=== PATIENT | female | born 1955 | race Caucasian/White ===

== ENCOUNTER → 2017-05-07 | Outpatient (CLI) | payer OTHER | END | disposition home or self-care (01) | LOC: CFH 10:27 | PROVIDERS: ATTEND Internal Medicine Cardiovascular Disease | DX: R07.9 Chest pain, unspecified (principal); I51.7 Cardiomegaly; I10 Essential (primary) hypertension; E78.5 Hyperlipidemia, unspecified | CPT/HCPCS: 93306 ==

== ENCOUNTER → 2017-05-26 | Outpatient (CLI) | payer OTHER | END | disposition home or self-care (01) | LOC: RAD 07:27 | PROVIDERS: ATTEND Internal Medicine Cardiovascular Disease | DX: R07.9 Chest pain, unspecified (principal); I10 Essential (primary) hypertension | CPT/HCPCS: 78452; 93017; A9502 ==

== ENCOUNTER 2019-08-03 15:06 | Inpatient (IN) | payer OTHER ==
[~2019-08-03] VITALS: Ht 154.9 cm; Wt 102.6 kg
--- NOTE | 2019-08-03 15:21 | NUR ---
RN ASKED PT IF SHE WAS ABLE TO PROVIDE RN WITH A URINE SAMPLE. PT AMBULATED TO RESTROOM WITH A STEADY GAIT.
--- NOTE | 2019-08-03 15:25 | NUR ---
PT PRESENTED TO ED D/T ABNORMAL LAB RESULTS FROM PCP. PT STATES HAVE BEEN ON A LIQUID DIET SINCE WEDNESDAY FOR PREVIOUS ABD PAIN. PT DENIES ANY PAIN AT THIS TIME. PT ONLY COMPLAINT OF "ORANGE" LOOKING URINE.
--- NOTE | 2019-08-03 15:29 | NUR ---
SUBSTATION TECHNICIAN AT BEDSIDE EVALUATING PT.
[2019-08-03] MEDS ORDERED: OMEP20TA62 PO (15:42)
[2019-08-03] MEDS ORDERED: BP MED (15:43)
--- NOTE | 2019-08-03 15:44 | NUR ---
LABS AT BEDSIDE. URINE SENT TO LAB.
[2019-08-03 15:59] LABS: BASOPHILS # (AUTO) 0.07 x10^3/uL (0-0.1); BASOPHILS % (AUTO) 1 % (0-1); EOSINOPHILS # (AUTO) 0.25 x10^3/uL (0-0.4); EOSINOPHILS % (AUTO) 3 % (1-7); LYMPHOCYTES # (AUTO) 2.22 x10^3/uL (1-3.4); LYMPHOCYTES % (AUTO) 29 % (22-44); MD NO; MEAN CORPUSCULAR HGB CONC 33.2 g/dL (32.4-35.8); MEAN CORPUSCULAR VOLUME 93.5 fL (80-100); MEAN PLATELET VOLUME 9.2 fL (7.4-10.4); MONOCYTES # (AUTO) 0.96 x10^3/uL (0.2-0.8); MONOCYTES % (AUTO) 13 % (2-9); NEUTROPHILS # (AUTO) 4.14 x10^3/uL (1.8-6.8); NEUTROPHILS % (AUTO) 54 % (42-75); PLATELET COUNT 334 x10^3/uL (130-400); RED BLOOD COUNT 4.81 x10^6/uL (3.82-5.3); RED CELL DISTRIBUTION WIDTH 13.7 % (9.6-15.2)
[2019-08-03 16:03] LABS: ALANINE AMINOTRANSFERASE 159 U/L (12-78); ALBUMIN 3.3 g/dL (3.4-5.0); ANION GAP 7 mmol/L (5-15); CALCIUM 9.4 mg/dL (8.5-10.1); CHLORIDE 107 mmol/L (98-107); CREATININE 0.72 mg/dL (0.55-1.02)
[2019-08-03 16:05] LABS: ALKALINE PHOSPHATASE 162 U/L (45-117); BILIRUBIN,TOTAL 1.3 mg/dL (0.2-1.0); TOTAL PROTEIN 8.1 g/dL (6.4-8.2)
--- NOTE | 2019-08-03 16:18 | NUR ---
PT ON PHONE LYING ON GURNEY. NO NEEDS AT THIS TIME. AWAITING US. VSS. RN TO CONTINUE TO MONITOR.
[2019-08-03 16:36] LABS: CULTURE INDICATED? YES; MICROSCOPIC INDICATED
--- NOTE | 2019-08-03 16:38 | NUR ---
PIV ACCESS OBTAINED. PT UPDATED ON POC.
--- NOTE | 2019-08-03 16:52 | NUR ---
RN TO GIVE REPORT TO NOLAN BUSH TO ASSUME PRIMARY CARE OF PT.
--- NOTE | 2019-08-03 16:57 | NUR ---
BEDSIDE REPORT GIVEN FROM NOLAN MARRUFO
--- NOTE | 2019-08-03 17:17 | NUR ---
US DONE. PT ON TALKING ON CELL PHONE. NO ACUTE DISTRESS NOTED. CALL LIGHT IN PLACE. WILL CONTINUE TO MONITOR.
[2019-08-03] MEDS ORDERED: LACTATED RINGERS 1,000 ML IVBOLUS ONE (17:30)
[2019-08-03] MEDS ORDERED: POLYETHYLENE GLYCOL 17 GM PACKET PO PRN (19:00)
[2019-08-03] MEDS ORDERED: ONDANSETRON ODT 4 MG PO PRN (19:00)
[2019-08-03] MEDS ORDERED: BISACODYL 10 MG SUPP PR PRN (19:00)
[2019-08-03] MEDS ORDERED: hydrALAzine 20 MG/ML, 1ML IVPush PRN (19:00)
[2019-08-03] MEDS ORDERED: ONDANSETRON 2MG/ML, 2ML IVPush PRN (19:00)
[2019-08-03] MEDS ORDERED: ACETAMINOPHEN 325 MG TABLET PO PRN (19:00)
[2019-08-03 20:33] VITALS: BP 137/83
[2019-08-03] MEDS: CEFTRIAXONE PMX 1GM/50ML 50 ML IV SCH (21:57)
[2019-08-03] MEDS: LACTATED RINGERS 1,000 ML IV SCH (21:57)
[2019-08-04 01:10] VITALS: BP 130/68
[2019-08-04 05:42] LABS: ANION GAP 5 mmol/L (5-15); CALCIUM 9.1 mg/dL (8.5-10.1); CHLORIDE 112 mmol/L (98-107)
[2019-08-04 05:46] LABS: ALANINE AMINOTRANSFERASE 145 U/L (12-78); ALKALINE PHOSPHATASE 145 U/L (45-117); BILIRUBIN,TOTAL 1.2 mg/dL (0.2-1.0); CHOL/HDL RATIO 5.1; CHOLESTEROL, TOTAL 163 mg/dL (140-239); CREATININE 0.58 mg/dL (0.55-1.02); HDL CHOL % 20 % (28-40); HDL CHOLESTEROL (DIRECT) 32 mg/dL (40-60); LDL CHOLESTEROL,CALCULATED 111 mg/dL (54-169); LDL/HDL RATIO 3.5 (0.5-3.0); TOTAL PROTEIN 7.2 g/dL (6.4-8.2); TRIGLYCERIDES 100 mg/dL (50-200); VLDL CHOLESTEROL 20 mg/dL (0-25)
[2019-08-04 05:49] LABS: BASOPHILS # (AUTO) 0.07 x10^3/uL (0-0.1); BASOPHILS % (AUTO) 1 % (0-1); EOSINOPHILS # (AUTO) 0.23 x10^3/uL (0-0.4); EOSINOPHILS % (AUTO) 4 % (1-7); LYMPHOCYTES # (AUTO) 1.79 x10^3/uL (1-3.4); LYMPHOCYTES % (AUTO) 28 % (22-44); MD NO; MEAN CORPUSCULAR HEMOGLOBIN 31.1 pg (27.0-34.8); MEAN CORPUSCULAR VOLUME 94.1 fL (80-100); MONOCYTES # (AUTO) 0.87 x10^3/uL (0.2-0.8); MONOCYTES % (AUTO) 14 % (2-9); NEUTROPHILS # (AUTO) 3.53 x10^3/uL (1.8-6.8); NEUTROPHILS % (AUTO) 54 % (42-75); PLATELET COUNT 293 x10^3/uL (130-400); RED CELL DISTRIBUTION WIDTH 13.9 % (9.6-15.2)
[2019-08-04 06:49] VITALS: BP 138/82
[2019-08-04] MEDS: LACTATED RINGERS 1,000 ML IV SCH ×2 (08:00→19:18)
[2019-08-04] MEDS: SENNA/DOCUSATE TABLET PO SCH (08:47)
[2019-08-04 12:38] VITALS: BP 138/88
[2019-08-04 19:37] VITALS: BP 138/68
[2019-08-04] MEDS: CEFTRIAXONE PMX 1GM/50ML 50 ML IV SCH (21:58)
[2019-08-05 00:43] VITALS: BP 131/74
[2019-08-05] MEDS: LACTATED RINGERS 1,000 ML IV SCH ×3 (03:22→18:11)
[2019-08-05 05:07] LABS: BASOPHILS # (AUTO) 0.07 x10^3/uL (0-0.1); BASOPHILS % (AUTO) 1 % (0-1); EOSINOPHILS # (AUTO) 0.24 x10^3/uL (0-0.4); EOSINOPHILS % (AUTO) 3 % (1-7); LYMPHOCYTES # (AUTO) 2.21 x10^3/uL (1-3.4); LYMPHOCYTES % (AUTO) 30 % (22-44); MD NO; MEAN CORPUSCULAR HEMOGLOBIN 31.4 pg (27.0-34.8); MEAN CORPUSCULAR HGB CONC 33.4 g/dL (32.4-35.8); MEAN PLATELET VOLUME 9.1 fL (7.4-10.4); MONOCYTES # (AUTO) 0.86 x10^3/uL (0.2-0.8); MONOCYTES % (AUTO) 12 % (2-9); NEUTROPHILS # (AUTO) 3.96 x10^3/uL (1.8-6.8); NEUTROPHILS % (AUTO) 54 % (42-75); PLATELET COUNT 301 x10^3/uL (130-400); RED BLOOD COUNT 4.36 x10^6/uL (3.82-5.3); RED CELL DISTRIBUTION WIDTH 13.5 % (9.6-15.2)
[2019-08-05 05:16] LABS: ALANINE AMINOTRANSFERASE 135 U/L (12-78); ALBUMIN 2.8 g/dL (3.4-5.0); ANION GAP 8 mmol/L (5-15); CALCIUM 8.8 mg/dL (8.5-10.1); CHLORIDE 110 mmol/L (98-107); CREATININE 0.52 mg/dL (0.55-1.02)
[2019-08-05 05:18] LABS: ALKALINE PHOSPHATASE 140 U/L (45-117)
[2019-08-05 06:46] VITALS: BP 150/100
[2019-08-05] MEDS: SENNA/DOCUSATE TABLET PO SCH (07:31)
[2019-08-05 12:11] VITALS: BP 167/78
[2019-08-05 20:00] VITALS: BP 169/84
[2019-08-05] MEDS: CEFTRIAXONE PMX 1GM/50ML 50 ML IV SCH (22:08)
[2019-08-05] MEDS ORDERED: VALS80TA30 PO (22:10)
[2019-08-06 01:38] VITALS: BP 148/75
[2019-08-06] MEDS: LACTATED RINGERS 1,000 ML IV SCH ×3 (03:41→17:50)
[2019-08-06 06:23] LABS: ALBUMIN 2.8 g/dL (3.4-5.0); ANION GAP 8 mmol/L (5-15); CALCIUM 9.1 mg/dL (8.5-10.1); CHLORIDE 110 mmol/L (98-107)
[2019-08-06 06:27] LABS: ALANINE AMINOTRANSFERASE 147 U/L (12-78); ALKALINE PHOSPHATASE 139 U/L (45-117); BILIRUBIN,TOTAL 1.1 mg/dL (0.2-1.0); CREATININE 0.46 mg/dL (0.55-1.02); TOTAL PROTEIN 7.1 g/dL (6.4-8.2)
[2019-08-06 06:56] VITALS: BP 142/70
[2019-08-06] MEDS: SENNA/DOCUSATE TABLET PO SCH (08:21)
[2019-08-06] MEDS: HEPARIN 5,000 UNITS/ML, 1ML SQ SCH ×2 (13:30→21:38)
[2019-08-06 13:42] VITALS: BP 174/84
[2019-08-06 15:37] VITALS: BP 161/86
[2019-08-06] MEDS ORDERED: VALSARTAN 80 MG TABLET ONE (15:49)
[2019-08-06] MEDS: VALSARTAN 80 MG TABLET PO SCH (15:52)
[2019-08-06 18:30] VITALS: BP 177/78
[2019-08-07 02:22] VITALS: BP 141/68
[2019-08-07] MEDS: LACTATED RINGERS 1,000 ML IV SCH ×4 (02:26→13:00)
[2019-08-07] MEDS: HEPARIN 5,000 UNITS/ML, 1ML SQ SCH ×2 (05:30→12:59)
[2019-08-07] MEDS ORDERED: BUPIVACAINE/PF-EPI 0.5% 1:200K ONE (07:10)
[2019-08-07] MEDS: VALSARTAN 80 MG TABLET PO SCH (07:21)
[2019-08-07] MEDS: SENNA/DOCUSATE TABLET PO SCH (07:21)
[2019-08-07 08:00] VITALS: BP 166/82
[2019-08-07] MEDS ORDERED: FENTANYL PF 250 MCG/5ML ONE (08:30)
[2019-08-07] MEDS ORDERED: MIDAZOLAM 1 MG/ML, 2ML ONE (08:30)
[2019-08-07] MEDS ORDERED: CHLORHEXIDINE 15 ML UDC ONE (09:23)
[2019-08-07] MEDS ORDERED: CHLORHEXIDINE 15 ML UDC MM ONE (09:30)
[2019-08-07] MEDS ORDERED: MEPERIDINE/PF 25MG/ML,1ML IVPush PRN (09:30)
[2019-08-07] MEDS ORDERED: HYDROmorphone 2 MG/ML, 1ML IVPush PRN (09:30)
[2019-08-07] MEDS ORDERED: ACETAMINOPHEN 325 MG TABLET PO PRN (09:30)
[2019-08-07] MEDS ORDERED: ONDANSETRON 2MG/ML, 2ML IV PRN ×2 (09:30→15:00)
[2019-08-07] MEDS ORDERED: hydrALAzine 20 MG/ML, 1ML IV PRN (09:30)
[2019-08-07] MEDS ORDERED: KETOROLAC 30 MG/1 ML IV PRN (09:30)
[2019-08-07] MEDS ORDERED: LABETALOL 5MG/ML, 20ML IV PRN (09:30)
[2019-08-07] MEDS ORDERED: LORazepam 2 MG/ML, 1ML IVPush PRN (09:30)
[2019-08-07] MEDS ORDERED: OXYcodone 5 MG/5 ML ORAL.SOL UDC PO PRN (09:30)
[2019-08-07] MEDS ORDERED: ONDANSETRON 2MG/ML, 2ML ONE (10:24)
[2019-08-07] MEDS ORDERED: ROCURONIUM 10MG/ML,5ML ONE (10:24)
[2019-08-07] MEDS ORDERED: DEXAMETHASONE 4 MG/ML, 1ML ONE (10:24)
[2019-08-07] MEDS ORDERED: SUGAMMADEX 200 MG/2 ML IVPush ONE (10:24)
[2019-08-07] MEDS ORDERED: CEFAZOLIN 1,000 MG ONE (10:24)
[2019-08-07] MEDS ORDERED: hydrALAzine 20 MG/ML, 1ML ONE ×2 (10:24→12:15)
[2019-08-07] MEDS ORDERED: PROPOFOL 10 MG/ML, 20ML ONE (10:24)
[2019-08-07] MEDS ORDERED: OMNIPAQUE 350 MG/ML, 50 ML BOTTLE IV ONE (10:39)
[2019-08-07] MEDS ORDERED: OXYcodone 5 MG/5 ML ORAL.SOL UDC ONE (11:36)
[2019-08-07] MEDS ORDERED: FENTANYL PF 100 MCG/2ML ONE (11:36)
[2019-08-07] MEDS ORDERED: ACETAMINOPHEN 650 MG/20.3 ML UDC ONE (11:36)
[2019-08-07] MEDS: FENTANYL PF 100 MCG/2ML IV PRN ×3 (11:40→11:50)
[2019-08-07] MEDS ORDERED: LABETALOL 5MG/ML, 20ML ONE (12:14)
[2019-08-07] MEDS ORDERED: HYDROmorphone 1 MG/ML, 1ML INJ ONE (12:14)
[2019-08-07 14:25] VITALS: BP 156/73
[2019-08-07 14:48] LABS: MEAN CORPUSCULAR VOLUME 93.8 fL (80-100); MEAN PLATELET VOLUME 9.2 fL (7.4-10.4); PLATELET COUNT 343 x10^3/uL (130-400); RED BLOOD COUNT 4.97 x10^6/uL (3.82-5.3); RED CELL DISTRIBUTION WIDTH 13.8 % (9.6-15.2)
[2019-08-07 14:49] LABS: MD YES
[2019-08-07] MEDS: POTASSIUM CHLORIDE 20 MEQ in LACTATED RINGERS 1,000 ML IV SCH (15:42)
[2019-08-07] MEDS: CEFOTETAN PMX 1GM/50ML 50 ML IVPB SCH (15:42)
[2019-08-07 16:48] LABS: BAND#(MANUAL) 0.33 x10^3/uL; BANDS%(MANUAL) 3 % (0-7); BASOS#(MANUAL) 0.11 x10^3/uL (0-0.1); BASOS% (MANUAL) 1 % (0-1); LYMPH#(MANUAL) 0.88 x10^3/uL (1-3.4); LYMPHS% (MANUAL) 8 % (22-44); MONOS#(MANUAL) 0.22 x10^3/uL (0.3-2.7); MONOS% (MANUAL) 2 % (2-9); SEG#(MANUAL) 9.46 x10^3/uL (1.8-6.8); SEGS% (MANUAL) 86 % (42-75)
[2019-08-07 16:55] LABS: <PLATELET ESTIMATE> ADEQUATE; <PLT MORPHOLOGY> NORMAL PLT MORPH; <RBC MORPHOLOGY> NORMAL
[2019-08-07 19:06] VITALS: BP 147/76
[2019-08-07] MEDS: ENOXAPARIN 40 MG/0.4 ML SQ SCH (21:41)
[2019-08-08] MEDS: POTASSIUM CHLORIDE 20 MEQ in LACTATED RINGERS 1,000 ML IV SCH ×2 (01:40→11:19)
[2019-08-08] MEDS: KETOROLAC 30 MG/1 ML IV PRN ×2 (01:46→18:38)
[2019-08-08 02:00] VITALS: BP 142/76
[2019-08-08] MEDS: CEFOTETAN PMX 1GM/50ML 50 ML IVPB SCH (02:53)
[2019-08-08 05:30] VITALS: BP 142/77
[2019-08-08 05:32] LABS: ANION GAP 8 mmol/L (5-15); CALCIUM 9.1 mg/dL (8.5-10.1); CHLORIDE 110 mmol/L (98-107)
[2019-08-08 05:34] LABS: BASOPHILS # (AUTO) 0.27 x10^3/uL (0-0.1); BASOPHILS % (AUTO) 2 % (0-1); EOSINOPHILS % (AUTO) 0 % (1-7); LYMPHOCYTES # (AUTO) 1.48 x10^3/uL (1-3.4); LYMPHOCYTES % (AUTO) 9 % (22-44); MD NO; MEAN CORPUSCULAR HEMOGLOBIN 30.9 pg (27.0-34.8); MEAN CORPUSCULAR HGB CONC 32.9 g/dL (32.4-35.8); MEAN CORPUSCULAR VOLUME 93.9 fL (80-100); MEAN PLATELET VOLUME 9.9 fL (7.4-10.4); MONOCYTES # (AUTO) 1.41 x10^3/uL (0.2-0.8); MONOCYTES % (AUTO) 9 % (2-9); NEUTROPHILS # (AUTO) 12.51 x10^3/uL (1.8-6.8); NEUTROPHILS % (AUTO) 80 % (42-75); PLATELET COUNT 326 x10^3/uL (130-400); RED BLOOD COUNT 4.72 x10^6/uL (3.82-5.3); RED CELL DISTRIBUTION WIDTH 13.6 % (9.6-15.2)
[2019-08-08 05:37] LABS: ALANINE AMINOTRANSFERASE 190 U/L (12-78); ALKALINE PHOSPHATASE 144 U/L (45-117); BILIRUBIN,TOTAL 0.9 mg/dL (0.2-1.0); TOTAL PROTEIN 7.6 g/dL (6.4-8.2)
[2019-08-08] MEDS: SENNA/DOCUSATE TABLET PO SCH (07:33)
[2019-08-08] MEDS: VALSARTAN 80 MG TABLET PO SCH (07:33)
[2019-08-08 07:49] VITALS: BP 114/83
[2019-08-08] MEDS ORDERED: CHLORHEXIDINE 15 ML UDC MM STA (13:00)
[2019-08-08] MEDS ORDERED: ONDANSETRON 2MG/ML, 2ML ONE (14:27)
[2019-08-08] MEDS ORDERED: SUCCINYLCHOLINE 20 MG/ML, 10ML ONE (14:27)
[2019-08-08] MEDS ORDERED: PROPOFOL 10 MG/ML, 20ML ONE (14:27)
[2019-08-08] MEDS ORDERED: ROCURONIUM 10 MG/ML,10ML ONE (14:27)
[2019-08-08] MEDS ORDERED: SUGAMMADEX 200 MG/2 ML IVPush ONE (14:27)
[2019-08-08] MEDS ORDERED: DEXAMETHASONE 4 MG/ML, 1ML ONE (14:27)
[2019-08-08] MEDS ORDERED: FENTANYL PF 100 MCG/2ML ONE (15:19)
[2019-08-08] MEDS ORDERED: OXYcodone 5 MG/5 ML ORAL.SOL UDC PO PRN (15:30)
[2019-08-08] MEDS ORDERED: hydrALAzine 20 MG/ML, 1ML IV PRN (15:30)
[2019-08-08] MEDS ORDERED: KETOROLAC 30 MG/1 ML IV PRN (15:30)
[2019-08-08] MEDS ORDERED: ACETAMINOPHEN 325 MG TABLET PO PRN (15:30)
[2019-08-08] MEDS ORDERED: ALBUTEROL SULFATE 2.5 MG/3 ML NPPB PRN (15:30)
[2019-08-08] MEDS ORDERED: FENTANYL PF 100 MCG/2ML IV PRN (15:30)
[2019-08-08] MEDS ORDERED: MEPERIDINE/PF 25MG/0.5ML IVPush PRN (15:30)
[2019-08-08] MEDS ORDERED: HYDROmorphone 2 MG/ML, 1ML IVPush PRN (15:30)
[2019-08-08] MEDS ORDERED: PROMETHAZINE 25 MG/ML, 1ML IV PRN (15:30)
[2019-08-08] MEDS ORDERED: DIAZEPAM 5 MG/ML, 2ML IVPush PRN (15:30)
[2019-08-08] MEDS ORDERED: LABETALOL 5MG/ML, 20ML IV PRN (15:30)
[2019-08-08] MEDS ORDERED: INDOMETHACIN 50 MG SUPP.RECT ONE (15:51)
[2019-08-08] MEDS ORDERED: INDOMETHACIN 50 MG SUPP.RECT PR ONE (16:00)
[2019-08-08] MEDS ORDERED: hydrALAzine 20 MG/ML, 1ML ONE (16:06)
[2019-08-08] MEDS: morphine SULFATE 10 MG/ML, 1ML IV PRN ×5 (19:03→21:15)
[2019-08-08] MEDS: ENOXAPARIN 40 MG/0.4 ML SQ SCH (19:13)
[2019-08-08 19:56] VITALS: BP 189/84
[2019-08-09 01:59] VITALS: BP 152/77
[2019-08-09] MEDS: POTASSIUM CHLORIDE 20 MEQ in LACTATED RINGERS 1,000 ML IV SCH (02:34)
[2019-08-09 05:59] LABS: BASOPHILS # (AUTO) 0.03 x10^3/uL (0-0.1); BASOPHILS % (AUTO) 0 % (0-1); EOSINOPHILS # (AUTO) 0.02 x10^3/uL (0-0.4); EOSINOPHILS % (AUTO) 0 % (1-7); LYMPHOCYTES # (AUTO) 1.75 x10^3/uL (1-3.4); LYMPHOCYTES % (AUTO) 14 % (22-44); MD NO; MEAN CORPUSCULAR HEMOGLOBIN 30.9 pg (27.0-34.8); MEAN CORPUSCULAR HGB CONC 33.2 g/dL (32.4-35.8); MEAN CORPUSCULAR VOLUME 93.2 fL (80-100); MEAN PLATELET VOLUME 9.9 fL (7.4-10.4); MONOCYTES # (AUTO) 0.58 x10^3/uL (0.2-0.8); MONOCYTES % (AUTO) 5 % (2-9); NEUTROPHILS # (AUTO) 9.75 x10^3/uL (1.8-6.8); NEUTROPHILS % (AUTO) 80 % (42-75); PLATELET COUNT 286 x10^3/uL (130-400); RED BLOOD COUNT 4.38 x10^6/uL (3.82-5.3); RED CELL DISTRIBUTION WIDTH 13.8 % (9.6-15.2)
[2019-08-09 06:03] LABS: ALBUMIN 2.9 g/dL (3.4-5.0); ANION GAP 5 mmol/L (5-15); CHLORIDE 111 mmol/L (98-107)
[2019-08-09 06:08] LABS: ALANINE AMINOTRANSFERASE 202 U/L (12-78); ALKALINE PHOSPHATASE 163 U/L (45-117); BILIRUBIN,TOTAL 1.1 mg/dL (0.2-1.0); CREATININE 0.51 mg/dL (0.55-1.02); TOTAL PROTEIN 7.1 g/dL (6.4-8.2)
[2019-08-09 07:20] VITALS: BP 134/79
[2019-08-09] MEDS: SENNA/DOCUSATE TABLET PO SCH (07:57)
[2019-08-09] MEDS: VALSARTAN 80 MG TABLET PO SCH (07:58)
[2019-08-09 13:11] VITALS: BP 146/83
== END 2019-08-09 16:09 | disposition home or self-care (01) | DRG 417 ==
LOC: ED 15:39 → EDIP 17:59 → 3N 20:13
PROVIDERS: ADMIT Family Medicine; ATTEND Family Medicine
PROC: BF131ZZ Fluoroscopy of Gallbladder and Bile Ducts using Low Osmolar Contrast (ICD-10-PCS; 2019-08-07)
PROC: 0FT44ZZ Resection of Gallbladder, Percutaneous Endoscopic Approach (ICD-10-PCS; principal; 2019-08-07 10:00)
PROC: 0F7D8DZ Dilation of Pancreatic Duct with Intraluminal Device, Via Natural or Artificial Opening Endoscopic (ICD-10-PCS; 2019-08-08)
PROC: BF181ZZ Fluoroscopy of Pancreatic Ducts using Low Osmolar Contrast (ICD-10-PCS; 2019-08-08)
DX: K80.70 Calculus of gallbladder and bile duct without cholecystitis without obstruction (principal); K85.10 Biliary acute pancreatitis without necrosis or infection; Z68.41 Body mass index [BMI] 40.0-44.9, adult; N39.0 Urinary tract infection, site not specified; E66.01 Morbid (severe) obesity due to excess calories; G20 Parkinson's disease; I10 Essential (primary) hypertension; Z82.49 Family history of ischemic heart disease and other diseases of the circulatory system; Z80.42 Family history of malignant neoplasm of prostate; R74.0 Nonspecific elevation of levels of transaminase and lactic acid dehydrogenase [LDH]
CPT/HCPCS: 36415; 74181; 74300; 74330; 76700; 80053; 80061; 80074; 81001; 83690; 85025; 87086; 88304; 93005; 99285; G0378; J0690; J0696; J1100; J1170; J1644; J1650; J1885; J2250; J2405; J2704; J3010; J3480; Q9967; C1769; C1894; C2625; J0330; J0360; J2270; J3490; J7120